=== PATIENT | female | born 1995 | race Caucasian/White ===

== ENCOUNTER 2021-08-06 00:55 | Emergency (ER) | payer OTHER, MEDICAID ==
[~2021-08-06] VITALS: Ht 165.1 cm; Wt 57.2 kg
[2021-08-06 00:55] VITALS: BP 121/74
[2021-08-06] MEDS ORDERED: ONDANSETRON ODT 4 MG TAB PO ONE (01:52)
== END 2021-08-06 03:09 | disposition left against medical advice (07) ==
LOC: ER 00:55
DX: S09.90XA Unspecified injury of head, initial encounter (principal); M54.50 Low back pain, unspecified; Z53.21 Procedure and treatment not carried out due to patient leaving prior to being seen by health care provider; X58.XXXA Exposure to other specified factors, initial encounter; Y93.89 Activity, other specified; Y92.89 Other specified places as the place of occurrence of the external cause; Y99.8 Other external cause status
CPT/HCPCS: 70450; 72125; 72128; Q0162

== ENCOUNTER 2023-07-19 17:01 | Emergency (ER) | payer MEDICAID ==
[~2023-07-19] VITALS: Ht 167.6 cm; Wt 54.5 kg
[~2023-07-19 17:01] MED LIST: POLYSOL28 OP
[2023-07-19 17:07] VITALS: O2SAT 99
[2023-07-19] MEDS ORDERED: ONDANSETRON HCL 4 MG/2 ML VIAL IV ONE (17:45)
[2023-07-19] MEDS ORDERED: MORPHINE SULFATE 4 MG/ML SYR/VIAL IV ONE (17:45)
[2023-07-19] MEDS ORDERED: SODIUM CHLORIDE 0.9% 1,000 ML IVB ONE (17:45)
[2023-07-19 18:28] LABS: Basophils # (auto) 0 10 ^3/uL (0-0.2); Basophils % (auto) 0.2 % (0.0-2.0); Eosinophils # (auto) 0.1 10 ^3/uL (0-0.8); Eosinophils % (auto) 0.9 % (0.0-7.0); Hematocrit 39.1 % (36.0-46.0); Lymphocytes % (auto) 16.1 % (10.0-50.0); Mean Corpuscular Hemoglobin 29.2 pg (28.0-32.0); Mean Corpuscular Hgb Conc. 33.1 g/dL (32.0-36.0); Mean Corpuscular Volume 88.1 fL (80.0-100.0); Monocytes # (auto) 0.8 10 ^3/uL (0-1.3); Monocytes % (auto) 6.1 % (0.0-12.0); Neutrophils # (auto) 9.6 10 ^3/uL (1.6-8.6); Neutrophils % (auto) 76.7 % (37.0-80.0); Red Blood Cells 4.44 10^6/uL (4.0-5.20); White Blood Cell 12.6 10^3/uL (4.4-10.8)
[2023-07-19 18:38] LABS: Chloride 102 mmol/L (98-107); Potassium 3.7 mmol/L (3.5-5.1); Sodium 137 mmol/L (136-145)
[2023-07-19 18:39] LABS: Anion Gap 6 (5-15); Calcium 8.9 mg/dL (8.5-10.1); Carbon Dioxide 29 mmol/L (20-30)
[2023-07-19 18:44] LABS: BUN/Creatinine Ratio 14.5 (10.0-20.0); Blood Urea Nitrogen 11 mg/dL (9-23); Glucose 91 mg/dL (74-106)
[2023-07-19 19:21] LABS: Urine Bacteria FEW /hpf (None Seen); Urine Blood TRACE /uL (Negative); Urine Clarity HAZY (Clear); Urine Color Yellow (Yellow); Urine Mucus FEW (None Seen); Urine Protein, UAD TRACE (Negative); Urine Specific Gravity 1.017 (1.001-1.035); Urine Urobilinogen Normal (Negative); Urine WBC 311 /hpf (0 - 5); Urine pH 6.5 (5.0-8.0)
[2023-07-19] MEDS ORDERED: IOHEXOL 300 MG/ML 100ML BOTTLE IJ ONE (19:47)
[2023-07-19] MEDS ORDERED: cefTRIAXone 1GM/50ML D5W 50 ML IV ONE (20:30)
[2023-07-19] MEDS ORDERED: CIPR-173 PO (21:26)
[2023-07-19] MEDS ORDERED: TRAM50TA2 PO (21:26)
[2023-07-20 00:38] VITALS: BP 104/57; PULSE 84; RESP 18
== END 2023-07-20 00:49 | disposition home or self-care (01) ==
LOC: ER 17:01
DX: N39.0 Urinary tract infection, site not specified (principal); R10.2 Pelvic and perineal pain; F17.210 Nicotine dependence, cigarettes, uncomplicated; F12.10 Cannabis abuse, uncomplicated; D72.829 Elevated white blood cell count, unspecified
CPT/HCPCS: 36415; 74177; 80048; 81001; 84702; 85025; 96365; 96375; 99285; J0696; J2270; J2405; J7030; Q9967

== ENCOUNTER 2024-11-08 22:43 | Emergency (ER) | payer MEDICAID ==
[~2024-11-08] VITALS: Ht 165.1 cm; Wt 54.5 kg
[~2024-11-08 22:43] MED LIST changes: +CIPR-173 PO; +TRAM50TA2 PO
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
[2024-11-09] MEDS ORDERED: IBUP-1456 PO (01:28)
[2024-11-09] MEDS: OXYCODONE W/ ACETAMINOPHEN 5/325MG TABLET PO ONE (01:43)
[2024-11-09] MEDS: KETOROLAC TROMETH 60MG/2ML VIAL IM ONE (01:43)
[2024-11-09 01:58] VITALS: BP 117/66; TEMP 98
[2024-11-09 01:59] VITALS: PULSE 100; RESP 16; O2SAT 100
== END 2024-11-09 02:02 | disposition home or self-care (01) ==
LOC: ER 22:52
DX: S82.65XA Nondisplaced fracture of lateral malleolus of left fibula, initial encounter for closed fracture (principal); S32.592A Other specified fracture of left pubis, initial encounter for closed fracture; F12.90 Cannabis use, unspecified, uncomplicated; F17.210 Nicotine dependence, cigarettes, uncomplicated; Z79.899 Other long term (current) drug therapy; V89.2XXA Person injured in unspecified motor-vehicle accident, traffic, initial encounter; Y92.89 Other specified places as the place of occurrence of the external cause; Y93.89 Activity, other specified; Y99.8 Other external cause status
CPT/HCPCS: 29515; 72040; 73502; 73610; 96372; 99284; J1885; 29125

== ENCOUNTER 2025-06-22 23:45 | Emergency (ER) | payer MEDICAID ==
[~2025-06-22] VITALS: Ht 165.1 cm; Wt 60.4 kg
[2025-06-22 23:59] VITALS: BP 124/90; PULSE 90; RESP 16; TEMP 97.2; O2SAT 100
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
[2025-06-23 01:05] LABS: Urine Protein, UAD 1+ (Negative)
[2025-06-23 02:28] LABS: COVID19 ANTIGEN SOFIA FIA NEGATIVE (NEGATIVE)
[2025-06-23] MEDS ORDERED: cefTRIAXone W LIDOCAINE 500 MG IM IM ONE (03:00)
[2025-06-23] MEDS ORDERED: metroNIDAZOLE 500 MG TAB PO ONE (03:00)
[2025-06-23] MEDS ORDERED: AZITHROMYCIN 250 MG TAB PO ONE (03:00)
[2025-06-23] MEDS ORDERED: DOXYCYCLINE 100 MG TAB/CAP PO ONE (10:00)
[2025-06-25 13:07] LABS: Chlamydia Trachomatis, NAA Negative (Negative); Neisseria gonorrhoeae, NAA Positive (Negative)
== END 2025-06-23 05:38 | disposition left against medical advice (07) ==
LOC: ER 23:45
DX: R11.2 Nausea with vomiting, unspecified (principal); R50.9 Fever, unspecified; F17.210 Nicotine dependence, cigarettes, uncomplicated; Z00.00 Encounter for general adult medical examination without abnormal findings; Z20.822 Contact with and (suspected) exposure to COVID-19
CPT/HCPCS: 36415; 81001; 81025; 86703; 86706; 86803; 87426; 87804; J0696